=== PATIENT | female | born 1980 | race Caucasian/White ===

== ENCOUNTER → 2017-11-08 | Outpatient (CLI) | payer OTHER ==
[2017-11-08 11:25] LABS: BASOPHILS # (AUTO) 0.03 x10^3/uL (0-0.1); BASOPHILS % (AUTO) 0 % (0-1); EOSINOPHILS # (AUTO) 0.12 x10^3/uL (0-0.4); EOSINOPHILS % (AUTO) 1 % (1-7); LYMPHOCYTES # (AUTO) 2.29 x10^3/uL (1-3.4); LYMPHOCYTES % (AUTO) 25 % (22-44); MD NO; MEAN CORPUSCULAR HEMOGLOBIN 31.6 pg (27.0-34.8); MEAN CORPUSCULAR HGB CONC 33.9 g/dL (32.4-35.8); MEAN CORPUSCULAR VOLUME 93.1 fL (80-100); MONOCYTES # (AUTO) 0.47 x10^3/uL (0.2-0.8); MONOCYTES % (AUTO) 5 % (2-9); NEUTROPHILS # (AUTO) 6.18 x10^3/uL (1.8-6.8); NEUTROPHILS % (AUTO) 68 % (42-75); PLATELET COUNT 314 x10^3/uL (130-400); RED BLOOD COUNT 5.09 x10^6/uL (3.82-5.3); RED CELL DISTRIBUTION WIDTH 13.7 % (9.6-15.2)
[2017-11-08 11:38] LABS: ALBUMIN 3.9 g/dL (3.4-5.0); ANION GAP 9 mmol/L (5-15); CHLORIDE 109 mmol/L (98-107)
[2017-11-08 11:49] LABS: ALANINE AMINOTRANSFERASE 24 U/L (12-78); ALKALINE PHOSPHATASE 76 U/L (45-117); BILIRUBIN,TOTAL 0.6 mg/dL (0.2-1.0); CHOL/HDL RATIO 3.6; CHOLESTEROL, TOTAL 174 mg/dL (140-239); HDL CHOL % 28 % (28-40); HDL CHOLESTEROL (DIRECT) 48 mg/dL (40-60); LDL CHOLESTEROL,CALCULATED 100 mg/dL (54-169); LDL/HDL RATIO 2.1 (0.5-3.0); TOTAL PROTEIN 7.7 g/dL (6.4-8.2); TRIGLYCERIDES 131 mg/dL (50-200); VLDL CHOLESTEROL 26 mg/dL (0-25)
== END | disposition home or self-care (01) ==
LOC: LAB 11:05
PROVIDERS: ATTEND Physician Assistant
DX: Z00.00 Encounter for general adult medical examination without abnormal findings (principal); L70.0 Acne vulgaris
CPT/HCPCS: 36415; 80053; 80061; 82306; 84443; 85025

== ENCOUNTER → 2018-08-22 | Outpatient (CLI) | payer OTHER | END | disposition home or self-care (01) | LOC: CFH 13:24 | PROVIDERS: ATTEND Nurse Practitioner Women's Health | DX: N83.202 Unspecified ovarian cyst, left side (principal); N83.201 Unspecified ovarian cyst, right side | CPT/HCPCS: 76830 ==

== ENCOUNTER 2018-09-19 09:07 | Emergency (ER) | payer OTHER ==
[~2018-09-19] VITALS: Ht 177.8 cm; Wt 98.2 kg
[~2018-09-19 09:07] MED LIST: CITA10TA8 PO; PROBIOTIC
[2018-09-19] MEDS ORDERED: SODIUM CHLORIDE FLUSH 10ML SYR IVF ONE (10:00)
[2018-09-19] MEDS ORDERED: SODIUM CHLORIDE 0.9% 1,000ML IVBOLUS ONE (10:00)
[2018-09-19] MEDS ORDERED: MORPHINE SULFATE 4 MG/ML, 1ML IVPush PRN (10:00)
[2018-09-19] MEDS ORDERED: ONDANSETRON 2MG/ML, 2ML IVPush ONE (10:00)
[2018-09-19 10:03] LABS: BASOPHILS # (AUTO) 0.02 x10^3/uL (0-0.1); BASOPHILS % (AUTO) 0 % (0-1); EOSINOPHILS # (AUTO) 0.05 x10^3/uL (0-0.4); EOSINOPHILS % (AUTO) 1 % (1-7); LYMPHOCYTES # (AUTO) 2.25 x10^3/uL (1-3.4); LYMPHOCYTES % (AUTO) 31 % (22-44); MD NO; MEAN CORPUSCULAR VOLUME 91.6 fL (80-100); MONOCYTES # (AUTO) 0.61 x10^3/uL (0.2-0.8); MONOCYTES % (AUTO) 8 % (2-9); NEUTROPHILS # (AUTO) 4.39 x10^3/uL (1.8-6.8); NEUTROPHILS % (AUTO) 60 % (42-75); PLATELET COUNT 339 x10^3/uL (130-400); RED BLOOD COUNT 5.07 x10^6/uL (3.82-5.3); RED CELL DISTRIBUTION WIDTH 13.2 % (9.6-15.2)
[2018-09-19 10:14] LABS: ALBUMIN 4.1 g/dL (3.4-5.0); ANION GAP 8 mmol/L (5-15); CALCIUM 9.2 mg/dL (8.5-10.1); CHLORIDE 107 mmol/L (98-107)
[2018-09-19 10:20] LABS: ALANINE AMINOTRANSFERASE 28 U/L (12-78); ALKALINE PHOSPHATASE 72 U/L (45-117); BILIRUBIN,TOTAL 0.5 mg/dL (0.2-1.0); CREATININE 0.89 mg/dL (0.55-1.02); TOTAL PROTEIN 7.8 g/dL (6.4-8.2)
[2018-09-19] MEDS ORDERED: HYDROmorphone 2 MG/ML, 1ML IVPush PRN (10:30)
[2018-09-19] MEDS ORDERED: ONDANSETRON 2MG/ML, 2ML ONE (11:57)
[2018-09-19] MEDS ORDERED: HYDROmorphone 2 MG/ML, 1ML ONE (11:57)
[2018-09-19 12:45] VITALS: BP 127/77
== END 2018-09-19 13:13 | disposition home or self-care (01) ==
LOC: ED 10:52
DX: K80.50 Calculus of bile duct without cholangitis or cholecystitis without obstruction (principal)
CPT/HCPCS: 36415; 76700; 80053; 83690; 84703; 85025; 96374; 96375; 99284; J1170; J2405; J7030

== ENCOUNTER → 2018-10-27 | Outpatient (CLI) | payer OTHER ==
[~2018-10-27] MED LIST changes: +ALLERGY MED; +ASCO10004 PO; +CHOL500015 PO; +IBUP-1223 PO; +LACT1CAP35 PO
== END | disposition home or self-care (01) ==
LOC: STAR 07:43
PROVIDERS: ATTEND Surgery
DX: Z02.9 Encounter for administrative examinations, unspecified (principal)

== ENCOUNTER 2018-11-04 07:14 | Day surgery (SDC) | payer OTHER ==
[~2018-11-04] VITALS: Ht 177.8 cm; Wt 96.6 kg
[~2018-11-04 07:14] MED LIST changes: +BUPIVACAINE/PF-EPI 0.5% 1:200K ONE
[2018-11-04] MEDS ORDERED: FENTANYL PF 100 MCG/2ML ONE ×3 (07:56→10:56)
[2018-11-04] MEDS ORDERED: MIDAZOLAM 1 MG/ML, 2ML ONE (07:56)
[2018-11-04 08:21] VITALS: BP 115/81
[2018-11-04] MEDS ORDERED: LACTATED RINGERS 1,000 ML IV SCH (08:25)
[2018-11-04 09:10] LABS: HCG UR SG 1.017 (1.003-1.030)
[2018-11-04] MEDS ORDERED: GLYCOPYRROLATE 0.2MG/1ML, 5ML ONE (09:37)
[2018-11-04] MEDS ORDERED: ROCURONIUM 10 MG/ML,10ML ONE (09:37)
[2018-11-04] MEDS ORDERED: ONDANSETRON 2MG/ML, 2ML ONE (09:37)
[2018-11-04] MEDS ORDERED: CEFOTETAN 2 GM ONE (09:37)
[2018-11-04] MEDS ORDERED: PROPOFOL 10 MG/ML, 20ML ONE (09:37)
[2018-11-04] MEDS ORDERED: NEOSTIGMINE 1 MG/ML, 10ML ONE (09:37)
[2018-11-04] MEDS ORDERED: LIDOCAINE-MPF 2% ,5ML ONE (09:37)
[2018-11-04] MEDS ORDERED: LORazepam 2 MG/ML, 1ML IVPush PRN (10:30)
[2018-11-04] MEDS ORDERED: HYDROmorphone 2 MG/ML, 1ML IVPush PRN (10:30)
[2018-11-04] MEDS ORDERED: METOCLOPRAMIDE 5 MG/ML, 2ML IV PRN (10:30)
[2018-11-04] MEDS ORDERED: MEPERIDINE/PF 25MG/0.5ML IVPush PRN (10:30)
[2018-11-04] MEDS ORDERED: OXYcodone 5 MG/5 ML ORAL.SOL UDC PO PRN (10:30)
[2018-11-04] MEDS ORDERED: OXYcodone 5 MG/5 ML ORAL.SOL UDC ONE (10:34)
[2018-11-04] MEDS ORDERED: METOCLOPRAMIDE 5 MG/ML, 2ML ONE (10:34)
[2018-11-04] MEDS: FENTANYL PF 100 MCG/2ML IV PRN ×4 (10:38→11:12)
[2018-11-04] MEDS ORDERED: HYDROmorphone 2 MG/ML, 1ML ONE (11:19)
== END 2018-11-04 12:40 | disposition home or self-care (01) ==
LOC: OUT 07:14
PROVIDERS: ATTEND Surgery
DX: K80.10 Calculus of gallbladder with chronic cholecystitis without obstruction (principal); F32.9 Major depressive disorder, single episode, unspecified; F17.210 Nicotine dependence, cigarettes, uncomplicated; Z98.890 Other specified postprocedural states; Z72.89 Other problems related to lifestyle; Z88.1 Allergy status to other antibiotic agents; Z88.8 Allergy status to other drugs, medicaments and biological substances; Z88.6 Allergy status to analgesic agent
CPT/HCPCS: 47562; 81025; 88304; J1170; J2250; J2405; J2704; J2710; J2765; J3010; J3490; J7120

== ENCOUNTER → 2019-02-20 | Outpatient (CLI) | payer OTHER ==
[~2019-02-20] MED LIST changes: -BUPIVACAINE/PF-EPI 0.5% 1:200K ONE
== END | disposition home or self-care (01) ==
LOC: CFH 12:32
PROVIDERS: ATTEND Obstetrics & Gynecology Gynecology
DX: N83.202 Unspecified ovarian cyst, left side (principal)
CPT/HCPCS: 76830

== ENCOUNTER 2019-03-05 05:19 | Emergency (ER) | payer OTHER ==
[~2019-03-05] VITALS: Ht 177.8 cm; Wt 100.0 kg
--- NOTE | 2019-03-05 05:33 | NUR ---
Pt presents to ed c/o ruq abd pain since 199. States "it feels like when i had gall stones." Cholecystectomy Oct. States sharp pain in abd and decreased appetite. Denies any gu s/s. Pa at bedside for assessment.
[2019-03-05] MEDS ORDERED: HYDROmorphone 2 MG/ML, 1ML IVPush PRN (06:00)
[2019-03-05] MEDS ORDERED: ONDANSETRON 2MG/ML, 2ML IVPush ONE (06:00)
[2019-03-05] MEDS ORDERED: SODIUM CHLORIDE FLUSH 10ML SYR IVF ONE (06:00)
[2019-03-05] MEDS ORDERED: HYDROmorphone 2 MG/ML, 1ML ONE (06:01)
[2019-03-05] MEDS ORDERED: ONDANSETRON 2MG/ML, 2ML ONE (06:01)
[2019-03-05 06:13] LABS: BASOPHILS # (AUTO) 0.03 x10^3/uL (0-0.1); BASOPHILS % (AUTO) 1 % (0-1); EOSINOPHILS # (AUTO) 0.12 x10^3/uL (0-0.4); EOSINOPHILS % (AUTO) 2 % (1-7); LYMPHOCYTES # (AUTO) 2.28 x10^3/uL (1-3.4); LYMPHOCYTES % (AUTO) 37 % (22-44); MD NO; MEAN CORPUSCULAR HEMOGLOBIN 31.7 pg (27.0-34.8); MEAN CORPUSCULAR HGB CONC 34.4 g/dL (32.4-35.8); MEAN CORPUSCULAR VOLUME 91.9 fL (80-100); MEAN PLATELET VOLUME 6.8 fL (7.4-10.4); MONOCYTES # (AUTO) 0.48 x10^3/uL (0.2-0.8); MONOCYTES % (AUTO) 8 % (2-9); NEUTROPHILS # (AUTO) 3.22 x10^3/uL (1.8-6.8); NEUTROPHILS % (AUTO) 53 % (42-75); PLATELET COUNT 297 x10^3/uL (130-400); RED BLOOD COUNT 4.65 x10^6/uL (3.82-5.3); RED CELL DISTRIBUTION WIDTH 12.9 % (9.6-15.2)
[2019-03-05 06:20] LABS: ALANINE AMINOTRANSFERASE 31 U/L (12-78); ALBUMIN 4.2 g/dL (3.4-5.0); ANION GAP 4 mmol/L (5-15); CALCIUM 9.8 mg/dL (8.5-10.1); CHLORIDE 108 mmol/L (98-107); CREATININE 0.72 mg/dL (0.55-1.02)
[2019-03-05 06:24] LABS: ALKALINE PHOSPHATASE 76 U/L (45-117); BILIRUBIN,TOTAL 0.4 mg/dL (0.2-1.0); TOTAL PROTEIN 7.5 g/dL (6.4-8.2)
--- NOTE | 2019-03-05 06:36 | NUR ---
Us at bedside.
--- NOTE | 2019-03-05 06:52 | NUR ---
Report to Marleen hutchinson. Pt attempting ua at this time.
--- NOTE | 2019-03-05 07:12 | NUR ---
ua in lab pt is still having pain but bp is slight dropped hr is 50's will assess later
[2019-03-05 07:35] LABS: MICROSCOPIC NOT IND
[2019-03-05 07:42] LABS: CULTURE INDICATED? NO
--- NOTE | 2019-03-05 08:00 | NUR ---
ua clean pt is resting vss stable family at bed side
--- NOTE | 2019-03-05 08:16 | NUR ---
ua clean ct abdomen was recommended
--- NOTE | 2019-03-05 09:00 | NUR ---
ct is still pending now
--- NOTE | 2019-03-05 09:02 | NUR ---
pt came back from ct result is still pending vss stable pt stated pain is better now
[2019-03-05] MEDS ORDERED: OMNIPAQUE 350 MG/ML, 100ML BOTTLE ONE (09:03)
[2019-03-05 10:55] VITALS: BP 118/66
[2019-03-08] MEDS ORDERED: OXYC-302 PO (23:41)
[2019-03-08] MEDS ORDERED: PROM25SU34 RC (23:42)
== END 2019-03-05 10:07 | disposition home or self-care (01) ==
LOC: ED 08:55
DX: R10.11 Right upper quadrant pain (principal); R11.0 Nausea
CPT/HCPCS: 36415; 74177; 76700; 80053; 81003; 83690; 84703; 85025; 93005; 96374; 96375; 99284; J1170; J2405; Q9967

== ENCOUNTER → 2019-03-08 | Day surgery (SDC) | payer OTHER ==
[~2019-03-08] VITALS: Ht 177.8 cm; Wt 98.2 kg
[~2019-03-08] MED LIST changes: +ACETAMINOPHEN 325 MG TABLET PO PRN; +APREPITANT 40 MG CAPSULE ONE; +BUPIVACAINE/PF 0.25% ONE; +BUPIVACAINE/PF-EPI 0.25% 1:200K IM ONE; +CEFOTETAN 2 GM ONE; +DEXAMETHASONE 4 MG/ML, 1ML ONE; +DIPHENHYDRAMINE 50 MG/ML, 1ML IV PRN; +DIPHENHYDRAMINE 50 MG/ML, 1ML ONE; +EPINEPHRINE 1 MG/ML, 1ML ONE; +FENTANYL PF 100 MCG/2ML IV PRN; +FENTANYL PF 100 MCG/2ML ONE; +FENTANYL PF 250 MCG/5ML ONE; +HALOPERIDOL 5 MG/ML IV PRN; +HYDROmorphone 2 MG/ML, 1ML IVPush PRN; +HYDROmorphone 2 MG/ML, 1ML ONE; +MEPERIDINE/PF 25MG/ML,1ML ONE; +MIDAZOLAM 1 MG/ML, 2ML ONE; +OMNIPAQUE 350 MG/ML, 100ML BOTTLE ONE; +ONDANSETRON 2MG/ML, 2ML IV PRN; +ONDANSETRON 2MG/ML, 2ML IVPush ONE; +ONDANSETRON 2MG/ML, 2ML ONE; +OXYC-302 PO; +OXYcodone 5 MG/5 ML ORAL.SOL UDC PO PRN; +OXYcodone/APAP 5/325MG TABLET PO PRN; +PROM25SU34 RC; +PROMETHAZINE 25 MG SUPP PR ONE; +PROMETHAZINE 25 MG/ML, 1ML IV PRN; +PROPOFOL 10 MG/ML, 20ML ONE; +ROCURONIUM 10 MG/ML,10ML ONE; +SILVER NITRATE STICK TP ONE; +SODIUM CHLORIDE FLUSH 10ML SYR IVF ONE; +SUGAMMADEX 200 MG/2 ML IVPush ONE; +hydrALAzine 20 MG/ML, 1ML ONE
[2019-03-08 13:26] LABS: BASOPHILS % (AUTO) 0 % (0-1); EOSINOPHILS # (AUTO) 0.03 x10^3/uL (0-0.4); EOSINOPHILS % (AUTO) 0 % (1-7); LYMPHOCYTES # (AUTO) 1.26 x10^3/uL (1-3.4); LYMPHOCYTES % (AUTO) 8 % (22-44); MD NO; MEAN CORPUSCULAR HEMOGLOBIN 31.2 pg (27.0-34.8); MEAN CORPUSCULAR VOLUME 91.8 fL (80-100); MEAN PLATELET VOLUME 7.3 fL (7.4-10.4); MONOCYTES # (AUTO) 0.53 x10^3/uL (0.2-0.8); MONOCYTES % (AUTO) 3 % (2-9); NEUTROPHILS # (AUTO) 13.92 x10^3/uL (1.8-6.8); NEUTROPHILS % (AUTO) 89 % (42-75); PLATELET COUNT 291 x10^3/uL (130-400); RED BLOOD COUNT 5.13 x10^6/uL (3.82-5.3); RED CELL DISTRIBUTION WIDTH 12.5 % (9.6-15.2)
[2019-03-08 13:36] LABS: ALBUMIN 4.2 g/dL (3.4-5.0); ANION GAP 10 mmol/L (5-15); CALCIUM 9.8 mg/dL (8.5-10.1); CHLORIDE 108 mmol/L (98-107); CREATININE 0.92 mg/dL (0.55-1.02)
[2019-03-08] MEDS: HYDROmorphone 1 MG/ML, 1ML INJ IVPush PRN ×2 (13:39→13:56)
--- NOTE | 2019-03-08 13:56 | NUR ---
PT TO ULTRASOUND W TECH
[2019-03-08 14:12] LABS: MICROSCOPIC NOT IND
[2019-03-08 14:15] LABS: CULTURE INDICATED? NO
--- NOTE | 2019-03-08 14:59 | NUR ---
SBAR report received from [facility]. Chart up for recheck.
--- NOTE | 2019-03-08 15:10 | NUR ---
Pt resting on erasmo, states that has been to bedside to discuss ED findings and POC. Pt is aware of plan for CT scan. IV already established. Pt states pain is 2-3/10 after 2nd dose of dilaudid. NC in place with 2L O2 as pt began desatting after dilaudid admin.
--- NOTE | 2019-03-08 15:34 | NUR ---
CT WAITING-CODE NEURO FIRST
--- NOTE | 2019-03-08 16:18 | NUR ---
Pt back to room from imaging.
[2019-03-08 17:48] VITALS: BP 122/66
--- NOTE | 2019-03-08 18:00 | NUR ---
Dr. Mtz at bedside discussing plan for OR.
[2019-03-08] MEDS: MEPERIDINE/PF 25MG/0.5ML IVPush PRN ×2 (19:55→21:07)
== END | disposition home or self-care (01) ==
LOC: OUT 08:00 → EDSTATUS 11:35 → ED 18:07 → EDIP 23:15 → UNDOADMIN 23:15 → 4NOR 23:38 → EDIP 23:38 → UNDODISIN 03-09 00:20
PROVIDERS: ATTEND Emergency Medicine
DX: N80.1 Endometriosis of ovary (principal); N83.202 Unspecified ovarian cyst, left side; N73.6 Female pelvic peritoneal adhesions (postinfective); F17.290 Nicotine dependence, other tobacco product, uncomplicated; Z88.6 Allergy status to analgesic agent; Z88.2 Allergy status to sulfonamides; Z88.8 Allergy status to other drugs, medicaments and biological substances; Z90.49 Acquired absence of other specified parts of digestive tract; Z98.890 Other specified postprocedural states
CPT/HCPCS: 36415; 58661; 74177; 76830; 80048; 81003; 82040; 84703; 85025; 88305; J0171; J0360; J1100; J1170; J2175; J2250; J2405; J2550; J2704; J3010; J3490; Q9967; G0378

== ENCOUNTER → 2019-11-20 | Outpatient (CLI) | payer OTHER ==
[~2019-11-20] MED LIST changes: -ACETAMINOPHEN 325 MG TABLET PO PRN; -APREPITANT 40 MG CAPSULE ONE; -BUPIVACAINE/PF 0.25% ONE; -BUPIVACAINE/PF-EPI 0.25% 1:200K IM ONE; -CEFOTETAN 2 GM ONE; -DEXAMETHASONE 4 MG/ML, 1ML ONE; -DIPHENHYDRAMINE 50 MG/ML, 1ML IV PRN; -DIPHENHYDRAMINE 50 MG/ML, 1ML ONE; -EPINEPHRINE 1 MG/ML, 1ML ONE; -FENTANYL PF 100 MCG/2ML IV PRN; -FENTANYL PF 100 MCG/2ML ONE; -FENTANYL PF 250 MCG/5ML ONE; -HALOPERIDOL 5 MG/ML IV PRN; -HYDROmorphone 2 MG/ML, 1ML IVPush PRN; -HYDROmorphone 2 MG/ML, 1ML ONE; -MEPERIDINE/PF 25MG/ML,1ML ONE; -MIDAZOLAM 1 MG/ML, 2ML ONE; -OMNIPAQUE 350 MG/ML, 100ML BOTTLE ONE; -ONDANSETRON 2MG/ML, 2ML IV PRN; -ONDANSETRON 2MG/ML, 2ML IVPush ONE; -ONDANSETRON 2MG/ML, 2ML ONE; -OXYcodone 5 MG/5 ML ORAL.SOL UDC PO PRN; -OXYcodone/APAP 5/325MG TABLET PO PRN; -PROMETHAZINE 25 MG SUPP PR ONE; -PROMETHAZINE 25 MG/ML, 1ML IV PRN; -PROPOFOL 10 MG/ML, 20ML ONE; -ROCURONIUM 10 MG/ML,10ML ONE; -SILVER NITRATE STICK TP ONE; -SODIUM CHLORIDE FLUSH 10ML SYR IVF ONE; -SUGAMMADEX 200 MG/2 ML IVPush ONE; -hydrALAzine 20 MG/ML, 1ML ONE
== END | disposition home or self-care (01) ==
LOC: CFH 14:57
PROVIDERS: ATTEND Nurse Practitioner Family
DX: Z12.31 Encounter for screening mammogram for malignant neoplasm of breast (principal)
CPT/HCPCS: 77063; 77067

== ENCOUNTER → 2020-05-30 | Outpatient (CLI) | payer OTHER | END | disposition home or self-care (01) | LOC: LAB 07:15 | PROVIDERS: ATTEND Obstetrics & Gynecology Female Pelvic Medicine and Reconstructive Surgery | DX: N95.1 Menopausal and female climacteric states (principal); E34.9 Endocrine disorder, unspecified | CPT/HCPCS: 36415; 82670; 83001 ==

== ENCOUNTER → 2020-07-18 | Outpatient (CLI) | payer OTHER ==
[~2020-07-18] MED LIST changes: +ASCO100018 PO; -ASCO10004 PO; +CETI10TA76 PO; +MINO100T2 PO; +SERT50TA28 PO; +SPIR100T4 PO
[2020-07-18 10:15] LABS: ALANINE AMINOTRANSFERASE 36 U/L (12-78); ALBUMIN 3.8 g/dL (3.4-5.0); ANION GAP 5 mmol/L (5-15); CHLORIDE 106 mmol/L (98-107)
[2020-07-18 10:17] LABS: ALKALINE PHOSPHATASE 104 U/L (45-117); BILIRUBIN,TOTAL 0.3 mg/dL (0.2-1.0); CREATININE 0.84 mg/dL (0.55-1.02); TOTAL PROTEIN 7.7 g/dL (6.4-8.2)
== END | disposition home or self-care (01) ==
LOC: STAR 07:44
PROVIDERS: ATTEND Obstetrics & Gynecology Female Pelvic Medicine and Reconstructive Surgery
DX: Z01.812 Encounter for preprocedural laboratory examination (principal); Z20.828 Contact with and (suspected) exposure to other viral communicable diseases; N92.0 Excessive and frequent menstruation with regular cycle; R10.2 Pelvic and perineal pain; E28.2 Polycystic ovarian syndrome; N80.9 Endometriosis, unspecified
CPT/HCPCS: 36415; 80053; 87635

== ENCOUNTER 2020-07-22 05:52 | Day surgery (SDC) | payer OTHER ==
[2020-07-18 08:28] VITALS: BP 122/82
[~2020-07-22] VITALS: Ht 179.1 cm; Wt 104.6 kg
[2020-07-22] MEDS ORDERED: LACTATED RINGERS 1,000 ML IV SCH ×2 (06:37→09:11)
[2020-07-22 06:40] VITALS: BP 122/82
[2020-07-22] MEDS ORDERED: BUPIVACAINE/PF 0.25% ONE (06:57)
[2020-07-22] MEDS ORDERED: INDIGO CARMINE 0.8%, 5ML ONE (06:57)
[2020-07-22] MEDS ORDERED: EPINEPHRINE 1 MG/ML, 1ML ONE (06:58)
[2020-07-22 07:00] LABS: HCG UR SG 1.033 (1.003-1.030)
[2020-07-22] MEDS ORDERED: CHLORHEXIDINE 15 ML UDC MM ONE (07:00)
[2020-07-22] MEDS ORDERED: MIDAZOLAM 1 MG/ML, 2ML ONE (07:11)
[2020-07-22] MEDS ORDERED: FENTANYL PF 100 MCG/2ML ONE ×2 (07:14→09:22)
[2020-07-22] MEDS ORDERED: BUPIVACAINE/PF-EPI 0.25% 1:200K INFIL ONE (08:15)
[2020-07-22] MEDS ORDERED: OXYcodone 5 MG/5 ML ORAL.SOL UDC PO PRN (08:30)
[2020-07-22] MEDS ORDERED: MEPERIDINE/PF 25MG/0.5ML IVPush PRN (08:30)
[2020-07-22] MEDS ORDERED: LABETALOL 5MG/ML, 20ML IV PRN (08:30)
[2020-07-22] MEDS ORDERED: DIAZEPAM 5 MG/ML, 2ML IVPush PRN (08:30)
[2020-07-22] MEDS ORDERED: DIPHENHYDRAMINE 50 MG/ML, 1ML IVPush PRN (08:30)
[2020-07-22] MEDS ORDERED: ACETAMINOPHEN 325 MG TABLET PO PRN (08:30)
[2020-07-22] MEDS ORDERED: HYDROmorphone 1 MG/ML, 1ML INJ IVPush PRN (08:30)
[2020-07-22] MEDS ORDERED: ONDANSETRON 2MG/ML, 2ML IVPush PRN ×2 (08:30→09:30)
[2020-07-22] MEDS ORDERED: PROMETHAZINE 25 MG/ML, 1ML IVPush PRN (08:30)
[2020-07-22] MEDS ORDERED: FENTANYL PF 100 MCG/2ML IV PRN (08:30)
[2020-07-22] MEDS ORDERED: hydrALAzine 20 MG/ML, 1ML IV PRN (08:30)
[2020-07-22] MEDS ORDERED: MEPERIDINE/PF 25MG/ML,1ML ONE (09:22)
[2020-07-22] MEDS ORDERED: ACETAMINOPHEN 650 MG/20.3 ML UDC ONE (09:22)
[2020-07-22] MEDS ORDERED: OXYcodone 5 MG/5 ML ORAL.SOL UDC ONE (09:23)
[2020-07-22] MEDS ORDERED: PROMETHAZINE 25 MG SUPP PR ONE ×2 (09:30→12:09)
[2020-07-22] MEDS ORDERED: IBUPROFEN 600 MG TABLET PO PRN (09:30)
[2020-07-22] MEDS ORDERED: HYDROcodone/APAP 5/325 TABLET PO PRN (09:30)
[2020-07-22] MEDS ORDERED: SUGAMMADEX 200 MG/2 ML IVPush ONE (15:53)
[2020-07-22] MEDS ORDERED: PROPOFOL 10 MG/ML, 20ML ONE (15:53)
[2020-07-22] MEDS ORDERED: CEFAZOLIN 1,000 MG ONE (15:53)
[2020-07-22] MEDS ORDERED: ONDANSETRON 2MG/ML, 2ML ONE (15:53)
[2020-07-22] MEDS ORDERED: ROCURONIUM 10MG/ML,5ML ONE (15:53)
[2020-07-22] MEDS ORDERED: DEXAMETHASONE 4 MG/ML, 1ML ONE (15:53)
== END 2020-07-22 12:15 | disposition home or self-care (01) ==
LOC: OUT 05:52
PROVIDERS: ATTEND Obstetrics & Gynecology Female Pelvic Medicine and Reconstructive Surgery
DX: R10.2 Pelvic and perineal pain (principal); N92.0 Excessive and frequent menstruation with regular cycle; D25.1 Intramural leiomyoma of uterus; N72 Inflammatory disease of cervix uteri; N80.1 Endometriosis of ovary; N80.3 Endometriosis of pelvic peritoneum; N83.11 Corpus luteum cyst of right ovary; N73.6 Female pelvic peritoneal adhesions (postinfective); E28.2 Polycystic ovarian syndrome; F32.9 Major depressive disorder, single episode, unspecified; Z88.2 Allergy status to sulfonamides; Z88.5 Allergy status to narcotic agent; Z88.8 Allergy status to other drugs, medicaments and biological substances; Z90.721 Acquired absence of ovaries, unilateral; Z90.79 Acquired absence of other genital organ(s)
CPT/HCPCS: 58552; 58662; 81025; 88304; 88307; J0171; J0690; J1100; J2175; J2250; J2405; J2704; J3010; J3490; S2900

== ENCOUNTER → 2021-02-24 | Outpatient (CLI) | payer OTHER ==
[~2021-02-24] MED LIST changes: -OXYC-302 PO; +OXYC1TAB14 PO
== END | disposition home or self-care (01) ==
LOC: CFH 09:02
PROVIDERS: ATTEND Nurse Practitioner Family
DX: Z12.31 Encounter for screening mammogram for malignant neoplasm of breast (principal)
CPT/HCPCS: 77063; 77067